=== PATIENT | male | born 1985 | race Caucasian/White ===

== ENCOUNTER → 2016-09-04 | Outpatient (CLI) | payer OTHER ==
[~2016-09-04] VITALS: Ht 185.4 cm; Wt 110.0 kg
[2016-09-04 13:05] VITALS: BP 110/75; PULSE 78; BMI 32.0
[2016-09-04 13:07] VITALS: BP 110/75; PULSE 78; Ht 185.4 cm; Wt 110.0 kg
== END | disposition home or self-care (01) ==
LOC: C.NEUR 12:26
PROVIDERS: ATTEND Internal Medicine Pulmonary Disease
DX: R06.83 Snoring (principal); R53.83 Other fatigue; G47.19 Other hypersomnia

== ENCOUNTER → 2016-10-01 | Outpatient (CLI) | payer OTHER ==
[2016-10-01 09:46] LABS: ALT/SGPT 38 U/L (12-78); BLOOD UREA NITROGEN 13 mg/dl (7-18); BUN/CREATININE RATIO 9.6 (10-20); CALCIUM 9.2 mg/dl (8.5-10.1); CARBON DIOXIDE 28 mmol/L (21-32); CHLORIDE 108 mmol/L (98-107); CHOLESTEROL 207 mg/dl (0-200); GLUCOSE 88 mg/dl (70-99); POTASSIUM 4.3 mmol/L (3.5-5.1); SODIUM 143 mmol/L (136-145)
[2016-10-01 09:49] LABS: ALB/GLOB RATIO 1.2 (0.9-2); ALKALINE PHOSPHATASE 85 U/L (45-117); AST/SGOT 22 U/L (15-37); CHOLESTEROL/HDL RATIO 5.2; HDL CHOLESTEROL 40 mg/dl; LDL CHOLESTEROL CALCULATED 141 mg/dl; TRIGLYCERIDES 131 mg/dl (0-150); VERY LOW DENSITY LIPOPROT CALC 26 mg/dl
== END | disposition home or self-care (01) ==
LOC: C.LAB 06:51
PROVIDERS: ATTEND Internal Medicine
DX: Z00.00 Encounter for general adult medical examination without abnormal findings (principal)

== ENCOUNTER → 2016-10-19 | Outpatient (CLI) | payer OTHER ==
--- NOTE | 2016-10-20 05:46 | PAP/PSG TECHNICIAN REPORT ---
[facility] Senior Engineering Specialist Polysomnogram Report Study name: None Report date: 10/20/2016 Study date: 10/19/2016 Referring Physician: Rafael Franco M.D. Name: DANITZA CHOWDHURY Interpreting Physician: Rafael Franco M.D. Date of : 1985 Senior Engineering Specialist: JETT Méndez. Sex: Male Age: 31 StudyType: PSG Weight: 242.5 lbs Height: 31 years, Height 6' 1" Neck Circum:18inches BMI: 31.99 Medications: Clobetasol Propionate 0.05% cream, Lexapro 10mg Patient History Study started on room air with no ETCO2 monitoring in room #8. 31 yr old male here tonight for a diagnostic psg. He complains of fatigue, unrefreshing sleep, EDS and loud snoring. His father and aunt have YOVANI and use cpap. His ESS=4/24. Neck circ=18inches. Parameters Monitored NPSG: E1-M2, E2-M1, Fp1-M2, Fp2-M1, F3-M2, F4-M2, F4-M1, C3-M2, C4-M2, C4-M1, O1-M2, O2-M2, O2-M1, T3-M2, T4-M1, P3-M2, P4-M1, CHIN1, CHIN2, HR, EKG, Legs, PFLOW, SNOR, FLOW, CFLOW, Tidal Volume, THOR, ABDO, SpO2, PLTH, CPRESS, ETCO2 Wave, ETCO2, pH Sleep Architecture Sleep Stages Time at Lights Off 9:38:16 PM STAGES Time (min.) TST (%) Time at Lights On 5:20:46 AM Wake 77.0 -- Total Recording Time (TRT) 462.50 min. N1 19.5 5 Total Sleep Period (TSP) 439.0 min. N2 247.5 64 Total Sleep Time (TST) 385.5min. N3 79.0 20 Awake Time 77.0 min. REM 39.5 10 Wake after Sleep Onset 53.5 min. Sleep Efficiency (SE) 83 % Sleep Onset Latency (BARAK) 23.5 min. Number of Stage 1 Shifts None Awakenings 11 Stage Changes 61 Number of REM periods 2 REM 39.5 10 REM Latency 163.5 min. NREM 346.0 90 Body Position Analysis Supine Right Left Side Prone Vertical Total Sleep Time (min.) 87.2 247.0 79.4 326.40 0.0 0.0 Total Sleep Time (%) 15% 64% 21% 85 0% N/A% Total Sleep Time REM (min.) 0.0 34.0 5.5 None 0.0 0.0 Total Sleep Time NREM (min.) 59.1 213.0 73.9 None 0.0 0.0 Intermittent Wake (min.) 28.1 10.7 38.2 None 0.0 0.0 Total Sleep Period (%) 18% None None None None None Arousals Myoclonus (PLM) * Events Count Index Events Count Index Spontaneous 10 2 Events Awake (PLMW) 147 114.5 Respiratory 0 0.0 Events Asleep w/ Arousal (PLMA) 14 2.2 PLM 14 2 Events Asleep w/o Arousal (PLMS) 99 15.4 Snoring 2 0 Total Asleep 113 17.6 Total 26 4 Total 260 34 Respiratory Analysis * CA OA MA CH H RERA Total Count 0 0 0 0 1 0 1 Index 0.0 0.0 0.0 0 0.2 0 0.2 Mean Duration 0.0 0.0 0.0 0.00 21.7 0.0 21.7 Longest Duration 0.0 0.0 0.0 0.00 0.0 0.0 21.7 Respiratory Event Summary Total Supine ~Supine Right Left Prone REM NREM Apneas Count 0 0 0 0 0 N/A 0 0 Index 0.0 0 0 0.0 0.0 N/A 0 0 Hypopneas (4% Desat) Count 1 1 0 0 0 N/A 0 1 Index 0.2 1.0 0 0.0 0.0 N/A 0.0 0.2 Apneas & All Hypopneas Count 1 1 0 0 0 N/A 0 1 Index 0.2 1 0 0 0 N/A 0.0 0.2 Respiratory Events (Ship Mate+All Hyp+RERA) Count 1 1 0 0 0 N/A 0 1 Index 0.2 1 0 0.0 0.0 N/A 0.0 0.2 Respiratory Related Arousal Count 0 1 0 0 0 N/A 0 0 Index 0.0 0 0 0 0 N/A 0 0 Snoring Analysis Supine Right Left Prone REM NREM Total Snore duration 80.8 min Snores count 342 1,820 755 N/A 30 2,887 2,917 Snore mean duration 1.7 Sec Snores index 347 442 570 N/A 45.6 500.6 454.0 TST with snoring (%) 21.0% Desaturation Event Summary: Minimum %SpO2 Event Count Mean/Min/Max Duration(sec.) Desaturation Index % Time In Bed > 90 17 26.4 / 4.5 / 60.0 2.3 98.8 86 - 90 1 58.5 / 58.5 / 58.5 11.3 1.2 81 - 85 1 8.5 / 8.5 / 8.5 423.5 0.0 76 - 80 0 N/A 0.0 0.0 71 - 75 0 N/A 0.0 0.0 66 - 70 0 N/A 0.0 0.0 61 - 65 0 N/A 0.0 0.0 56 - 60 0 N/A 0.0 0.0 51 - 55 0 N/A 0.0 0.0 < 50 0 N/A 0.0 0.0 Total REM NREM Awake <50% 0.0 min. 0.0 min. 0.0 min. 0.0 min. 51 - 60% 0.0 min. 0.0 min. 0.0 min. 0.0 min. 61 - 70% 0.0 min. 0.0 min. 0.0 min. 0.0 min. 71 - 80% 0.0 min. 0.0 min. 0.0 min. 0.0 min. 81 - 90% 5.5 min. 0.0 min. 4.9 min. 0.6 min. 91 - 100% 453.3 min. 39.5 min. 340.9 min. 72.9 min. Average 94 95 94 94 Minimum SpO2 83 92 87 83 Desaturation Event Index 2.2 1.5 0.9 8.6 # Desat. Events below 89% 3 N/A 1 2 Time(%) with Saturation below 89% 0.1 0.0 0.1 0.0 Time(min.) with Saturation below 89% 0.6 0.0 0.5 0.2 Time (mins) REM (mins) NREM (mins) % of TST SpO2 Below 90% 2 N/A N2 0.5 SpO2 Below 88% 1 0 0 0 Heart Rate Analysis Min (bpm) Max (bpm) Average (bpm) Awake 51 167 70 NREM 52 93 65 REM 57 105 66 Overall 52 105 65 Supplemental O2 Values Minimum O2 level: None Value Start Time End Time Senior Engineering Specialist Comments Mr. Chowdhury slept in the right, left and supine positions. No cardiac arrhythmia noted. Some leg movements were noted. No bruxism noted. Snoring was noted and scored as a 4 on a scale of 1 through 5. (0=no snoring, 5=snoring loud enough to be heard through a closed door or down the [address] way) He did not use the restroom during the night. He stated that he slept about the same as usual. The final report will be interpreted and signed by a sleep physician. The completed physician report will then be placed in the patient medical record. Therapy (cm H2O) 0 TIB (min.) 462.5 TST (min.) 385.5 Sleep Onset (min.) 23.5 REM Onset From Sleep (min.) 163.5 Sleep Efficiency % 83 Wakefulness (%) 17 Wakefulness (min.) 77.0 NREM 1 (%) 5 NREM 1 (min.) 19.5 NREM 2 (%) 64 NREM 2 (min.) 247.5 NREM 3 (%) 20 NREM 3 (min.) 79.0 REM (%) 10 REM (min.) 39.5 # Arousals 26 Arousal Index 4 # Snore 2,917 Snore Index 454.0 AHI 0.2 AHI Supine 1 AHI Non-Supine 0 NREM AHI 0.2 REM AHI 0.0 RDI 0.2 # Obstructive Apnea 0 # Central Apnea 0 # Mixed Apnea 0 # Hypopneas 1 RERAs 0 Total Respiratory Events 4 Time Below SpO2 89% (min.) 0.5 Mean NREM SpO2 (%) 94 Mean REM SpO2 (%) 95 Mean Sleep SpO2 (%) 94 Min NREM SpO2 (%) 87 Min REM SpO2 (%) 92 Position Supine (min.) 87.2 Position Non-supine (min.) 326.4 LM Index Sleep 17.6 LM Index NREM 15.8 LM Index REM 33.4 Mean Heart Rate (bpm) 65 Min Heart Rate (bpm) 52
--- NOTE | 2016-10-22 16:22 | Sleep Study ---
Sleep Study Report Date of Service: October 19, 2016 Sleep Study Report Clinical data: The patient is a 31-year-old male with a history of fatigue, snoring, excessive daytime sleepiness, weight gain, and a positive family history of sleep apnea. He was referred for a sleep study to evaluate these symptoms. His [place] sleepiness score is 4/24. Sleep architecture: Total sleep period was 439 minutes. Total sleep time was 385.5 minutes divided between 346 minutes of non-REM sleep and 39.5 minutes of REM sleep. Sleep onset latency was 23.5 minutes. REM latency was mildly delayed at 163.5 minutes. Sleep efficiency was 83 percent. Wake after sleep onset was 53.5 minutes. Sleep consisted of stage N1 5 percent, stage N2 64 percent, stage N3 20 percent, and REM 10 percent. Arousal data: 26 arousals were recorded for an index of 14 per hour. PLM data: 113 limb movements during sleep were noted for an index of 17.6 per hour with an arousal index of 2.2 per hour Respiratory data: There was no evidence of clinically significant sleep apnea. The AHI was 0.2. There was 1 hypopnea, 21.7 seconds in duration. Oximetry data: No significant hypoxemia was seen. Oxygen karmen was 87 percent during non-REM sleep. Mean saturation was 94 percent. Time below 88 percent was 1 minute. EKG: Heart rates ranged from 50 to 105 beats per minute. No arrhythmias were noted. Physics Technical Officer's comments: The patient slept in the right, left, and supine positions. Snoring was severe, rated 4 on a scale of 1 - 5. He did not awaken to use the restroom at night. Impression: No evidence of clinically significant sleep apnea/hypopnea nocturnal hypoxemia to explain this patient's symptoms. he did have very mildly elevated limb movements during sleep. Recommendations: The patient should continue to practice good sleep hygiene. Weight loss may be of benefit. Copies To 1: Marilyn CarmonaPShannanA.
== END | disposition home or self-care (01) ==
LOC: C.NEUR 21:00
PROVIDERS: ATTEND Internal Medicine Pulmonary Disease
DX: G47.19 Other hypersomnia (principal); R53.83 Other fatigue; R06.83 Snoring